=== PATIENT | female | born 1975 | race Caucasian/White ===

== ENCOUNTER → 2017-10-27 | Outpatient (CLI) | payer OTHER | LOC: BRMIMAGING 13:30 | PROVIDERS: ATTEND Internal Medicine | DX: R06.02 Shortness of breath (principal); M06.09 Rheumatoid arthritis without rheumatoid factor, multiple sites; Z79.899 Other long term (current) drug therapy | CPT/HCPCS: 71020-PO ==

== ENCOUNTER → 2018-05-24 | Outpatient (CLI) | payer MEDICAID | LOC: CIMAGING 10:59 | PROVIDERS: ATTEND Family Medicine | DX: M50.322 Other cervical disc degeneration at C5-C6 level (principal); M40.04 Postural kyphosis, thoracic region | CPT/HCPCS: 72040-PO; 72070-PO ==